=== PATIENT | male | born 1970 | race African-American/Black ===

== ENCOUNTER 2017-05-25 20:24 | Emergency (ER) | payer OTHER ==
[~2017-05-25] VITALS: Ht 180.3 cm; Wt 72.7 kg
[2017-05-25] MEDS ORDERED: METF10002 PO (21:00)
[2017-05-25] MEDS ORDERED: LISI-660 PO (21:00)
[2017-05-25 21:07] LABS: GLUCOSE,POINT OF CARE 364 MG/DL (70-110)
[2017-05-25] MEDS ORDERED: KETOROLAC TROMETHAMINE 30 MG/ML VIAL IM ONE (22:45)
[2017-05-25] MEDS ORDERED: PERTUSS(ACELL),DIPH,TET VAC/PF 0.5 ML VIAL IM ONE (22:45)
[2017-05-25 23:18] LABS: GLUCOSE,POINT OF CARE 261 MG/DL (70-110)
[2017-05-25 23:47] VITALS: BP 139/98
== END 2017-05-25 23:49 | disposition home or self-care (01) ==
LOC: EMS 20:26
DX: S61.412A Laceration without foreign body of left hand, initial encounter (principal); L08.9 Local infection of the skin and subcutaneous tissue, unspecified; E11.9 Type 2 diabetes mellitus without complications; I10 Essential (primary) hypertension; W45.8XXA Other foreign body or object entering through skin, initial encounter; Y93.89 Activity, other specified; Y92.89 Other specified places as the place of occurrence of the external cause; Y99.8 Other external cause status
CPT/HCPCS: 73130; 82962; 90471; 90715; 96372; 99284; J1885